=== PATIENT | female | born 1990 | race Two or more races ===

== ENCOUNTER 2021-02-28 04:10 | Emergency (ER) | payer OTHER ==
[~2021-02-28] VITALS: Ht 154.9 cm; Wt 81.6 kg
[2021-02-28 04:10] VITALS: BP 148/87
[2021-02-28] MEDS ORDERED: LORazepam 2MG/ML-1ML VIAL IV ONE (04:30)
[2021-02-28] MEDS ORDERED: SODIUM CHLORIDE 0.9% 1,000 ML IV ONE (04:30)
== END 2021-02-28 05:07 | disposition left against medical advice (07) ==
LOC: ER 04:10 → EDBD 04:10 → ER 05:07
DX: F41.9 Anxiety disorder, unspecified (principal); R07.89 Other chest pain; I10 Essential (primary) hypertension; Z53.21 Procedure and treatment not carried out due to patient leaving prior to being seen by health care provider
CPT/HCPCS: 96361; 96374

== ENCOUNTER 2023-08-07 14:16 | Emergency (ER) | payer BC ==
[~2023-08-07] VITALS: Ht 154.9 cm; Wt 82.3 kg
[2023-08-07 14:25] VITALS: TEMP 99.6
[2023-08-07 14:28] VITALS: BP 155/95; PULSE 118; RESP 18; O2SAT 100
[2023-08-07 15:08] LABS: Urine Bacteria FEW /hpf (None Seen); Urine Blood Negative /uL (Negative); Urine Budding Yeast OCCASIONAL /hpf (None Seen); Urine Clarity Turbid (Clear); Urine Color Dark-Yellow (Yellow); Urine Protein, UAD 1+ (Negative); Urine Specific Gravity 1.005 (1.001-1.035); Urine Urobilinogen Normal (Negative); Urine WBC 17 /hpf (0 - 5); Urine pH 7.5 (5.0-9.0)
[2023-08-07] MEDS ORDERED: NITR-87 PO (15:40)
[2023-08-07] MEDS: cefTRIAXone SOD 1,000 MG VL IM ONE (15:55)
== END 2023-08-07 15:40 | disposition home or self-care (01) ==
LOC: ER 14:16
DX: N30.90 Cystitis, unspecified without hematuria (principal); Z79.899 Other long term (current) drug therapy
CPT/HCPCS: 81001; 81025; 96372; 99283; J0696

== ENCOUNTER → 2023-08-11 | Outpatient (CLI) | payer BC ==
[~2023-08-11] MED LIST: NITR-87 PO
== END | disposition home or self-care (01) ==
LOC: LAB 16:41
PROVIDERS: ATTEND Student in an Organized Health Care Education/Training Program
DX: N39.0 Urinary tract infection, site not specified (principal); R30.0 Dysuria
CPT/HCPCS: 87086